=== PATIENT | female | born 1950 | race Hispanic/Latino ===

== ENCOUNTER → 2018-05-03 | Outpatient (CLI) | payer MEDICARE ==
[~2018-05-03] MED LIST: ALBUTEROL/IPRATROPIUM 3 ML NEB ONE
--- NOTE | 2018-05-03 14:46 | Diagnostic Imaging Report ---
EXAM: CHEST 2 VIEWS DATE: 05/03/2018 9:03 AM INDICATION: Dyspnea COMPARISON: None FINDINGS: Lines and tubes: None Heart size normal. There is patchy airspace opacity in both lower lobes, greater on the left. No pleural effusion or pneumothorax. No pulmonary vascular congestion. Upper abdomen unremarkable. No acute bony abnormality. IMPRESSION: Patchy opacities at the lung bases, compatible with multifocal pneumonia. Signed by: Dr. Luis Arango M.D. on 05/03/2018 9:28 AM
--- NOTE | 2018-05-03 23:08 | Pulmonary Function Test ---
DATE OF STUDY: REFERRING PHYSICIAN: PRIMARY CARE PHYSICIAN: Not listed. Restrictive spirometry effort was suboptimal. Forced vital capacity 1.47 L, 48% of predicted. FEV1 of 1.47 L, 62%. FEV1/FVC ratio 100%, FEF 25-75 of 153%. Diffusion capacity is reduced at 7.55, 33% predicted, suggesting loss of alveolar units or ventilation perfusion imbalance. Lung volumes in question. Total lung capacity is 5.73 m at 114% of predicted. Findings could suggest severe obstructive pulmonary disease involving small airways. Clinical correlation required. Hector Galeano MD DS/MODL /[id number]
== END ==
LOC: RESP 08:36
PROVIDERS: ATTEND Internal Medicine Pulmonary Disease
DX: R06.09 Other forms of dyspnea (principal); R06.02 Shortness of breath
CPT/HCPCS: 71046; 94010; 94727; 94729

== ENCOUNTER → 2018-06-02 | Day surgery (SDC) | payer MEDICARE ==
[2018-06-01 09:34] LABS: BASOPHILS # (AUTO) 0.1 (0.0-0.1); BASOPHILS % 0.9 % (0.0-1.0); EOSINOPHILS # (AUTO) 0.2 (0.0-0.4); EOSINOPHILS % 2.4 % (0.0-6.0); HEMATOCRIT 40.3 % (34.2-44.1); HEMOGLOBIN 13.2 g/dL (12.0-16.0); LYMPHOCYTES # (AUTO) 2.1 (1.0-3.2); MEAN CORPUSCULAR HEMOGLOBIN 31.4 pg (28-32); MEAN CORPUSCULAR HGB CONC 32.8 g/dL (31-35); MONOCYTES # (AUTO) 0.8 (0.2-0.8); MONOCYTES % 9.6 % (4.4-11.3); NEUTROPHILS # (AUTO) 4.7 (2.1-6.9); NEUTROPHILS % 59.8 % (38.7-80.0); PLATELET COUNT 349 x10e3/uL (140-360); RED CELL DISTRIBUTION WIDTH 12.3 % (11.7-14.4)
[~2018-06-02] MED LIST changes: +ALBUTEROL SULFAT2 MG PO; -ALBUTEROL/IPRATROPIUM 3 ML NEB ONE; +ATORVASTATIN CA10 MG PO; +CLONAZEPAM0.5 MG PO; +COLACE100 MG PO; +FENTANYL CITRATE/PF 100MCG/2 ML INJ ONE; +FLUOXETINE HCL20 M1; +GABAPENTIN100 MG; +GLIMEPIRIDE2 MG PO; +IBUPROFEN400 MG PO; +LEVOTHYROXINE50 MCG PO; +MIDAZOLAM HCL 2 MG/2 ML VIAL ONE; +OXYBUTYNIN CHLOR5 MG PO; +PROPOFOL IV EMULSION 10 MG/ML 50 ML VIAL ONE; +TRAZODONE HCL100 MG; +TRULICITY; +TYLENOL WITH C1 EACH PO
--- OUTSIDE RECORDS SUMMARY | 2018-06-02 06:43 | XMS REPORT ---
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 Allergies, Adverse Reactions, Alerts This patient has no known allergies or adverse reactions. Medications This patient has no known medications. Results Test Description Test Time Test Comments Text Results Atomic Results Result Comments CHEST 2 VIEWS 2018-05-03 09:25:00 [place] [address] Patient Name: MELIZA ALEXANDER MR #: [id number] : 1950 Age/Sex: 67/F Req #: [id number] Adm Physician: Ordered by: OSBALDO GARCIA MD Report #: [id number] Location: RESP Room/Bed: Procedure: [id number] DX/CHEST 2 VIEWS Exam Date: 05/03/18 Exam Time: 0904 REPORT STATUS: Signed EXAM: CHEST 2 VIEWS DATE: 05/03/2018 9:03 AM ROBBIN CATION: Dyspnea COMPARISON: None FINDINGS: Lines and tubes: None Heart size normal. There is patchy airspace opacity in both lower lobes, greater on the left. No pleural effusion or pneumothorax. No pulmonary vascular congestion. Upper abdomen unremarkable. No acute bony abnormality. IMPRESSION: Patchy opacities at the lung bases, compatible with multifocal pneumonia. Signed by: Dr. Yoli Bonilla M.D. on 05/03/2018 9:28 AM Dictated By: YOLI BONILLA MD 7 Transcribed By: VINCE on 05/03/18927 COPY TO: OSBALDO GARCIA MD
[2018-06-02 09:30] VITALS: BP 135/87
== END | disposition home or self-care (01) ==
LOC: OR 06:30
PROVIDERS: ATTEND Internal Medicine Gastroenterology
DX: R19.5 Other fecal abnormalities (principal); K64.8 Other hemorrhoids; Z71.3 Dietary counseling and surveillance; E66.3 Overweight; R06.09 Other forms of dyspnea; E03.9 Hypothyroidism, unspecified; E11.9 Type 2 diabetes mellitus without complications; R42 Dizziness and giddiness; F32.9 Major depressive disorder, single episode, unspecified; F41.9 Anxiety disorder, unspecified; Z01.810 Encounter for preprocedural cardiovascular examination; Z01.812 Encounter for preprocedural laboratory examination; Z79.84 Long term (current) use of oral hypoglycemic drugs; Z68.26 Body mass index [BMI] 26.0-26.9, adult
CPT/HCPCS: 36415 ×2; 45378; 82948; 85025; 93005; J2250; J2704